=== PATIENT | female | born 1995 | race African-American/Black ===

== ENCOUNTER 2021-03-26 13:03 | Inpatient (IN) ==
[2021-03-26] MEDS ORDERED: REGLAN INJ 10 MG VIAL IVP PRN (13:29)
[2021-03-26] MEDS ORDERED: PHENERGAN INJ 25 MG IM PRN ×2 (13:29→14:22)
[2021-03-26] MEDS ORDERED: PITOCIN IVP ONE (13:29)
[2021-03-26] MEDS ORDERED: D5 LR + PITOCIN 10 UNITS/L 10 UNITS/1,000 ML BAG IV PRN (13:29)
[2021-03-26 14:05] LABS: BASOPHILS % (AUTO) 0.3 % (0.2-1.0); EOSINOPHILS % (AUTO) 0.2 % (0.9-2.9); HEMATOCRIT 29.9 % (36.0-47.0); HEMOGLOBIN 9.9 g/dL (12.0-16.0); LYMPHOCYTES # (AUTO) 0.7 X10^3/uL (1.3-2.9); LYMPHOCYTES % (AUTO) 8.3 % (21.0-51.0); MEAN CORPUSCULAR HEMOGLOBIN 25.5 pg (27.0-34.0); MEAN CORPUSCULAR HGB CONC 33.1 g/dL (33.0-35.0); MEAN CORPUSCULAR VOLUME 77.2 fL (80.0-100.0); MEAN PLATELET VOLUME 8.6 fL (7.4-11.0); MONOCYTES # (AUTO) 0.4 x10^3/uL (0.3-0.8); MONOCYTES % (AUTO) 5.2 % (0.0-13.0); NEUTROPHILS # (AUTO) 7.1 x10^3/uL (2.2-4.8); PLATELET COUNT 230 X10^3/uL (150.0-450.0); RED BLOOD COUNT 3.87 X10^6/uL (3.5-5.4); RED CELL DISTRIBUTION WIDTH 18.7 % (11.6-16.5); WHITE BLOOD COUNT 8.2 X10^3/uL (3.6-10.0)
[2021-03-26 14:13] LABS: BLOOD UREA NITROGEN 5 mg/dL (7-18); CALCIUM 8.2 mg/dL (8.5-10.1); CARBON DIOXIDE 22.3 mmol/L (21-32); CHLORIDE 106 mmol/L (98-107); COR NA(FOR HYPERGLY) 139 mmol/L (136-145); CREATININE 0.64 mg/dL (0.55-1.02); SODIUM 137 mmol/L (136-145); eGFR NON BLACK RACES > 60 (>60)
[2021-03-26] MEDS ORDERED: MOTRIN TAB 800 MG PO PRN ×2 (14:22→15:26)
[2021-03-26 14:41] LABS: BILIRUBIN,URINE NEGATIVE (NEGATIVE); BLOOD/HEMOGLOBIN,URINE 5+ (NEGATIVE); GLUCOSE, URINE NEGATIVE (NEGATIVE); KETONES,URINE NEGATIVE (NEGATIVE); LEUKOCYTE ESTERASE ,URINE NEGATIVE (NEGATIVE); NITRITES,URINE NEGATIVE (NEGATIVE); PROTEIN,URINE 4+ (NEGATIVE); UROBILINOGEN,URINE NORMAL (NORMAL)
[2021-03-26] MEDS ORDERED: D5 1/2 NS 1,000 ML 1,000 ML with PITOCIN 20 UNITS IV SCH ×2 (15:00)
[2021-03-26 15:08] LABS: APPEARANCE,URINE CLOUDY (CLEAR); COLOR,URINE RED (YELLOW)
[2021-03-26 15:09] LABS: BACTERIA,URINE NEGATIVE /HPF (NEGATIVE); RBC,URINE TNTC /HPF (0-3); SQUAMOUS EPITHELIAL CELL,UR RARE /HPF (NEGATIVE)
[2021-03-26] MEDS ORDERED: DERMOPLAST PAIN RELIEF SPRAY TOP PRN (15:26)
[2021-03-26] MEDS ORDERED: MILK OF MAGNESIA PO PRN (15:26)
[2021-03-26] MEDS ORDERED: PITOCIN ONE (15:43)
[2021-03-26] MEDS ORDERED: D5 LR + PITOCIN 10 UNITS/L 10 UNITS/1,000 ML BAG IV ONE (15:44)
[2021-03-26] MEDS ORDERED: D5 1/2 NS 1,000 mL + PITOCIN 20 UNITS/L IV 20 UNITS/1,000 ML BAG IV ONE (15:44)
[2021-03-26] MEDS ORDERED: AMBIEN PO PRN (21:00)
[2021-03-27 03:44] LABS: HEMATOCRIT 26.1 % (36.0-47.0); HEMOGLOBIN 8.5 g/dL (12.0-16.0)
[2021-03-27] MEDS ORDERED: DEPO-PROVERA CONTRACEPTIVE INJ IM ONE (07:31)
[2021-03-27] MEDS ORDERED: PRENATAL PLUS PO SCH (09:00)
[2021-03-27] MEDS ORDERED: ADACEL or BOOSTRIX TDaP VACCINE IM ONE (09:45)
[2021-03-27 11:40] VITALS: BP 99/56
== END 2021-03-27 15:50 | disposition home or self-care (01) | DRG 776 ==
LOC: LD 13:03 → MED/SURG 15:38
PROVIDERS: ADMIT Specialist; ATTEND Specialist
DX: Z23 Encounter for immunization; D50.8 Other iron deficiency anemias; Z39.0 Encounter for care and examination of mother immediately after delivery; O99.02 Anemia complicating childbirth; O73.0 Retained placenta without hemorrhage